=== PATIENT | male | born 1980 | race Caucasian/White ===

== ENCOUNTER 2017-03-05 07:22 | Emergency (ER) | payer MEDICAID, SELFPAY ==
[2017-03-05 07:23] VITALS: BP 144/90; PULSE 69; RESP 18; TEMP 36.6; O2SAT 97; BMI 31.9
--- NOTE | 2017-03-05 07:28 | ED.RN ---
PT VERBALIZES THAT HE HAS BEEN SEEN HERE SEVERAL TIMES FOR HIS CHRONIC VOMITING AND WE DONT DO ANYTHING OTHER THAN STICK AN IV IN AND GIVEN HIM NAUSEA MEDS. EDUCATION ON ER TREATMENT AND CARE AND IMPROTANCE OF FOLLOWUP WITH PCP, OUTPATIENT TESTING VS ER TESTING ETC.
--- NOTE | 2017-03-05 07:40 | ED.VISSUMM ---
- ER Visit Summary Date of Service: 03/05/17 Chief Complaint: Nausea and vomiting ?3 with blood streaks History of Present Illness: The patient is a 36 M who has history of chronic nausea and vomiting for approximately 3 years. He presents this morning because he noted blood streaks in the second emesis. He presently has no pain nor does he complain of nausea. He denies fever, chills night sweats. He denies any ocular, auditory or visual symptoms. He denies epistaxis, rhinorrhea, earache or sore throat. He denies any chest discomfort or palpitations. He denies shortness of breath or difficulty breathing. Presently he complains of no abdominal pain. He states he has had a workup which included an EGD, colonoscopy and CT which were all negative. He is scheduled to see GI at the [facility] and have gastric studies . Physical Examination: Blood pressure is 144/90. Head is atraumatic normocephalic. Pupils are equal round reactive. Extraocular muscles are intact. TMs are pearly white with landmarks noted. Nares patent with no drainage. Posterior pharynx without erythema or exudate. Uvula is midline. There is no dysphonia or dysphasia. Trachea is midline. There is no stridor with auscultation of the neck. Heart is regular without murmur, gallop or rub. S1 and S2 are normal. Lungs are clear to auscultation with good movement of air bilaterally. Abdomen is soft nontender bowel sounds are present normal. There is no hepatosplenomegaly. There is no bruising on dermatologic exam noted. 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 He was treated with Protonix since he is on a PPI. The PPI that he is prescribed is not on formulary. He states he has not been compliant with his medication. Treatment Plan: Follow-up with his PCP and keep appointment with GI at [facility] Disposition: Discharged to home Impression: 1. 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 History of depression This note was generated with [employer] dictation software. It may contain incorrect words, spelling, and punctuation that were not noted in review of the chart prior to signing ED Disposition - Plan for ED Patient: Disposition: Home or Assisted Living Chief Complaint: Nausea/Vomiting Instructions: Meghana-Jordan Tear Referrals: Daniel Marie MD [Primary Care Provider] - As Needed Additional Instructions: 1. It is important to take your medication as instructed daily. 2. Keep appointment with GI center at [facility] for diagnostic testing scheduled for March 09, 2017
--- NOTE | 2017-03-05 07:44 | ED.DCSUM_ITS ---
- ER Visit Summary Date of Service: 03/05/17 Chief Complaint: Nausea and vomiting ?3 with blood streaks History of Present Illness: The patient is a 36 M who has history of chronic nausea and vomiting for approximately 3 years. He presents this morning because he noted blood streaks in the second emesis. He presently has no pain nor does he complain of nausea. He denies fever, chills night sweats. He denies any ocular, auditory or visual symptoms. He denies epistaxis, rhinorrhea , earache or sore throat. He denies any chest discomfort or palpitations. He denies shortness of breath or difficulty breathing. Presently he complains of no abdominal pain. He states he has had a workup which included an EGD, colonoscopy and CT which were all negative. He is scheduled to see GI at the [facility] and have gastric studies . Physical Examination: Blood pressure is 144/90. Head is atraumatic normocephalic. Pupils are equal round reactive. Extraocular muscles are intact. TMs are pearly white with landmarks noted. Nares patent with no drainage. Posterior pharynx without erythema or exudate. Uvula is midline. There is no dysphonia or dysphasia. Trachea is midline. There is no stridor with auscultation of the neck. Heart is regular without murmur, gallop or rub. S1 and S2 are normal. Lungs are clear to auscultation with good movement of air bilaterally. Abdomen is soft nontender bowel sounds are present normal. There is no hepatosplenomegaly. There is no bruising on dermatologic exam noted. 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 He was treated with Protonix since he is on a PPI. The PPI that he is prescribed is not on formulary. He states he has not been compliant with his medication. Treatment Plan: Follow-up with his PCP and keep appointment with GI at [facility] Disposition: Discharged to home Impression: 1. 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 History of depression This note was generated with [employer] dictation software. It may contain incorrect words, spelling, and punctuation that were not noted in review of the chart prior to signing ED Disposition - Plan for ED Patient: Disposition: Home or Assisted Living Chief Complaint: Nausea/Vomiting Instructions: Meghana-Jordan Tear Referrals: Daniel Marie MD [Primary Care Provider] - As Needed Additional Instructions: 1. It is important to take your medication as instructed daily. 2. Keep appointment with GI center at [facility] for diagnostic testing scheduled for March 09, 2017
[2017-03-05] MEDS: Pantoprazole Sodium 40 MG Tablet PO (07:48)
== END 2017-03-05 07:54 | disposition home or self-care (01) ==
PROVIDERS: Emergency Provider Emergency Medicine; Family Provider Family Medicine; PCP Family Medicine
DX: R11.2 Nausea with vomiting, unspecified (principal); R10.9 Unspecified abdominal pain; K22.6 Gastro-esophageal laceration-hemorrhage syndrome; Z72.0 Tobacco use; Z79.899 Other long term (current) drug therapy; Z91.14 Patient's other noncompliance with medication regimen
CPT/HCPCS: 99282

== ENCOUNTER 2017-05-30 06:47 | Emergency (ER) | payer MEDICAID, SELFPAY ==
[2017-05-30 06:48] VITALS: BP 123/83; PULSE 71; RESP 16; TEMP 36.7; O2SAT 96; BMI 31.0
--- NOTE | 2017-05-30 07:09 | ED.VISSUMM ---
- ER Visit Summary Date of Service: 05/30/17 Chief Complaint: [Vomiting and need for medication refill] History of Present Illness: The patient is a 36 M [presents to the emergency department with 2 episodes of vomiting since 3 AM. Patient states that he ran out of his amitriptyline 2 days ago. Patient has had a history of chronic abdominal issues including vomiting for the last 3 years. Patient's had workup for this including EGD. Patient states that he started amitriptyline in March and it has made a significant difference in the symptoms that he used to have. Patient states that currently is vomiting and nausea have resolved. He describes some mild diffuse abdominal discomfort which is typical for his symptomatology after vomiting. Patient denies any fever or recent illness. Patient does not want anything for nausea at this time. Patient denies urinary symptoms. Patient denies diarrhea. Patient denies blood in his stool or vomit.] Physical Examination: [HEENT-PERRLA, EOMI. Cranial nerves II through XII grossly intact. TMs clear. Mucous membranes moist. No adenopathy. Cardiovascular-regular rate and rhythm without murmur or ectopy Lungs-clear to auscultation, chest wall stable without crepitus or subcu emphysema Abdomen-normoactive bowel sounds, soft. Mild diffuse tenderness. There is no rebound, rigidity, or perineal signs. Patient does not localize. Extremities-intact ?4, normal range of motion, normal pulses, atraumatic] Test Results: [None indicated] Emergency Department Course and Treatment: [Patient was just like a prescription option for his amitriptyline and a note stating patient was in the emergency department for his work.] Treatment Plan: [Patient will be given a prescription for amitriptyline and advised to follow-up with his primary care physician within the next 2-3 days.] Disposition: [Discharged to home in stable condition] Impression: [Medication refill Nausea and vomiting-acute on chronic] This note was generated with [employer] dictation software. It may contain incorrect words, spelling, and punctuation that were not noted in review of the chart prior to signing ED Disposition - Plan for ED Patient: Chief Complaint: Nausea/Vomiting Referrals: Daniel Marie MD [Primary Care Provider] -
--- NOTE | 2017-05-30 07:12 | ED.DCSUM_ITS ---
- ER Visit Summary Date of Service: 05/30/17 Chief Complaint: [Vomiting and need for medication refill] History of Present Illness: The patient is a 36 M [presents to the emergency department with 2 episodes of vomiting since 3 AM. Patient states that he ran out of his amitriptyline 2 days ago. Patient has had a history of chronic abdominal issues including vomiting for the last 3 years. Patient's had workup for this including EGD. Patient states that he started amitriptyline in March and it has made a significant difference in the symptoms that he used to have. Patient states that currently is vomiting and nausea have resolved. He describes some mild diffuse abdominal discomfort which is typical for his symptomatology after vomiting. Patient denies any fever or recent illness. Patient does not want anything for nausea at this time. Patient denies urinary symptoms. Patient denies diarrhea. Patient denies blood in his stool or vomit. ] Physical Examination: [HEENT-PERRLA, EOMI. Cranial nerves II through XII grossly intact. TMs clear. Mucous membranes moist. No adenopathy. Cardiovascular-regular rate and rhythm without murmur or ectopy Lungs-clear to auscultation, chest wall stable without crepitus or subcu emphysema Abdomen-normoactive bowel sounds, soft. Mild diffuse tenderness. There is no rebound, rigidity, or perineal signs. Patient does not localize. Extremities-intact ?4, normal range of motion, normal pulses, atraumatic] Test Results: [None indicated] Emergency Department Course and Treatment: [Patient was just like a prescription option for his amitriptyline and a note stating patient was in the emergency department for his work.] Treatment Plan: [Patient will be given a prescription for amitriptyline and advised to follow-up with his primary care physician within the next 2-3 days.] Disposition: [Discharged to home in stable condition] Impression: [Medication refill Nausea and vomiting-acute on chronic] This note was generated with [employer] dictation software. It may contain incorrect words, spelling, and punctuation that were not noted in review of the chart prior to signing ED Disposition - Plan for ED Patient: Chief Complaint: Nausea/Vomiting Referrals: Daniel Marie MD [Primary Care Provider] -
--- NOTE | 2017-05-30 07:13 | ED.DEP ---
ED Disposition - Plan for ED Patient: Chief Complaint: Nausea/Vomiting Instructions: ED Nausea Vomiting Prescriptions: Ondansetron [Zofran Odt] 4 mg PO Q8H PRN PRN #10 tab PRN Reason: Nausea Amitriptyline HCl 10 mg PO QHS #30 tab Referrals: Daniel Marie MD [Primary Care Provider] - 3-5 Days
== END 2017-05-30 07:37 | disposition home or self-care (01) ==
LOC: ED 07:13
PROVIDERS: Emergency Provider Emergency Medicine; Family Provider Family Medicine; PCP Family Medicine
DX: R11.2 Nausea with vomiting, unspecified (principal); Z76.0 Encounter for issue of repeat prescription; Z72.0 Tobacco use
CPT/HCPCS: 99282

== ENCOUNTER 2017-07-30 08:00 | Emergency (ER) | payer MEDICAID, SELFPAY ==
[2017-07-30 08:01] VITALS: BP 121/84; PULSE 60; RESP 18; TEMP 36.6; O2SAT 98; BMI 32.8
--- NOTE | 2017-07-30 08:14 | ED.DCSUM_ITS ---
- ER Visit Summary Date of Service: 07/30/17 Chief Complaint: Nausea, vomiting History of Present Illness: The patient is a 36 M presenting with nausea, vomiting. He states this started around 3 AM. He states he has vomited 3 times in the past 5 hours. He denies blood in his emesis. He has mild abdominal cramping. Denies diarrhea or constipation. Denies urinary complaints. Denies fever chills. He states he has vomited every day for the past 3 years. He is currently being worked up by his primary care physician for these symptoms. He states they have not found a cause. Denies other complaints. Physical Examination: Vitals are stable. Patient is afebrile. Alert no acute distress. HEENT exam is unremarkable. Neck is supple. Lungs are clear and equal bilaterally. Heart is regular rate and rhythm. Abdomen is soft mild epigastric tenderness with no rebound or guarding. Extremities are unremarkable. Skin is warm and dry. Remainder of exam is unremarkable. Emergency Department Course and Treatment: Patient is given IV fluids, Zofran. Basic metabolic panel, lipase are unremarkable. Patient is feeling improved. He states he has nausea medicine at home. Advised to follow-up with primary care physician. Advised return to ED if worsening complaints. Disposition: Discharge home Impression: Nausea, vomiting This note was generated with [employer] dictation software. It may contain incorrect words, spelling, and punctuation that were not noted in review of the chart prior to signing ED Disposition - Plan for ED Patient: Chief Complaint: Nausea/Vomiting Referrals: Daniel Marie MD [Primary Care Provider] -
[2017-07-30] MEDS: 0.9% Normal Saline 1,000 ML 999 ML IV (08:24)
[2017-07-30] MEDS: Ondansetron 4 MG/2 ML Vial IV (08:24)
[2017-07-30 08:47] LABS: Anion Gap 6 (5-15); BUN 10 mg/dL (7-18); BUN/Creat Ratio 8.7 RATIO (10-20); Calcium,Total 8.7 mg/dL (8.5-10.1); Chloride 109 mmol/L (98-107); Creatinine, Serum 1.15 mg/dL (0.70-1.30); EST Glomerular Filtration Rate 77 mL/min (>60); Est Glom Filt Rate - Afr Amer 93 mL/min (>60); Estimated Creatinine Clearance 84.62 ml/min; Glucose 102 mg/dL (74-106); Lipase 79 U/L (73-393); Sodium Level 141 mmol/L (136-145)
--- NOTE | 2017-07-30 08:59 | ED.DEP ---
ED Disposition - Plan for ED Patient: Chief Complaint: Nausea/Vomiting Instructions: ED Nausea Vomiting Referrals: Daniel Marie MD [Primary Care Provider] -
[2017-07-30 09:13] VITALS: BP 120/78; PULSE 98; RESP 14; O2SAT 99
== END 2017-07-30 09:14 | disposition home or self-care (01) ==
PROVIDERS: Emergency Provider Emergency Medicine; Family Provider Family Medicine; PCP Family Medicine
DX: R11.2 Nausea with vomiting, unspecified (principal); R10.9 Unspecified abdominal pain; Z72.0 Tobacco use
CPT/HCPCS: 80048; 83690; 96361; 96374; 99283; J7030; A4216; J2405

== ENCOUNTER 2018-04-22 05:50 | Emergency (ER) | payer MEDICAID, SELFPAY ==
[2018-04-22 05:50] VITALS: BP 148/87; PULSE 88; RESP 16; TEMP 36.9; O2SAT 98; BMI 32.8
--- NOTE | 2018-04-22 06:14 | ED.VISSUMM ---
- ER Visit Summary Date of Service: 04/22/18 Chief Complaint: Nausea and vomiting History of Present Illness: The patient is a 37 M no significant past medical history. Patient states for the last 3-1/2 years he has nausea vomiting almost daily. States this morning around 330 he started vomiting about 4 times. Denies any hematemesis. No fever. No diarrhea. No dysuria. States he did have upper abdominal cramping. He is never been given a diagnosis for why he vomits on a daily basis. He has had upper endoscopy which she states was negative. Physical Examination: Young male no acute distress. Vital signs are stable. He is afebrile. He does not look septic or toxic. He does not look significantly dehydrated. HEENT exam unremarkable. Neck nontender no lymphadenopathy. Lungs clear to auscultation bilaterally. Heart regular rate and rhythm no murmur rate about 9. Abdomen soft. Nondistended normal bowel sounds no peritoneal signs. Minimal epigastric tenderness. No hernias or masses. No signs of obstruction. Right lower quadrant right upper quadrant unremarkable. No East sign no McBurney's point tenderness. Patient is moving all 4 extremities. Neurovascular intact. No edema. Back nontender. Neurologically is awake alert with no focal motor deficits. Test Results: CBC normal normal white count hemoglobin. Chemistries normal normal creatinine and gap. Liver enzymes normal. Lipase normal. Emergency Department Course and Treatment: Patient treated with a liter normal saline. IV Zofran. Screening labs to be obtained. On repeat exam at 06:44 AM patient is doing well. Abdomen is benign. His nausea is resolving and is had no further vomiting. He is currently being discharged to home. Treatment Plan: Follow-up with his primary care physician. Fluids and rest. Zofran as needed for nausea. Disposition: Discharge Impression: Acute on chronic nausea vomiting of uncertain etiology This note was generated with [employer] dictation software. It may contain incorrect words, spelling, and punctuation that were not noted in review of the chart prior to signing ED Disposition - Plan for ED Patient: Disposition: Home or Assisted Living Instructions: ED Nausea Vomiting Prescriptions: Ondansetron [Zofran Odt] 4 mg PO Q8H PRN PRN #10 tab PRN Reason: Nausea Referrals: Daniel Marie MD [Primary Care Provider] - 1 Week if not improving Additional Instructions: Friend for nausea as needed. Plenty of fluids and rest. Follow-up with your doctor.
--- NOTE | 2018-04-22 06:16 | ED.DEP ---
ED Disposition - Plan for ED Patient: Disposition: Home or Assisted Living Instructions: ED Nausea Vomiting Prescriptions: Ondansetron [Zofran Odt] 4 mg PO Q8H PRN PRN #10 tab PRN Reason: Nausea Referrals: Daniel Marie MD [Primary Care Provider] - 1 Week if not improving Additional Instructions: Friend for nausea as needed. Plenty of fluids and rest. Follow-up with your doctor.
[2018-04-22] MEDS: Ondansetron 4 MG/2 ML Vial IV (06:29)
[2018-04-22] MEDS: 0.9% Normal Saline 1,000 ML 1000 ML IV (06:29)
[2018-04-22 06:31] LABS: Absolute Lymphocyte Count 1.86 X10^3/ul (0.83-4.51); Absolute Neutrophil Count 5.3 X10^3/uL (2.0-7.7); Basophil# 0.07 X10^3/uL; Basophil% 0.8 % (0-1); Eosinophil# 0.57 X10^3/uL; Eosinophils% 6.6 % (0-5); Hematocrit 50.2 % (40-54); Lymphocyte # 1.86 X10^3/ul (4.0); Lymphocyte % 21.5 % (19-41); Mean Corp Hgb Conc 33.9 g/gl (32-36); Mean Corpuscular Hgb 29.6 pg (27.0-32.0); Mean Corpuscular Volume 87.3 fL (80-94); Mean Platelet Vol. 10.2 fl (6.2-12.0); Monocyte# 0.88 X10^3/uL; Monocyte% 10.1 % (0-10); Neutrophil # 5.26 X10^3/uL (2.7-7.7); Neutrophil % 60.7 % (47-70); Platelet Count 276 K/mm3 (150-450); RBC Distribution Width CV 13.4 % (11.6-14.6); Red Blood Count 5.75 M/mm3 (4.6-6.2); White Blood Count 8.7 K/mm3 (4.4-11.0)
[2018-04-22 06:32] LABS: POSITIVE COUNT NO; POSITIVE DIFFERENTIAL NO; POSITIVE MORPHOLOGY NO
[2018-04-22 06:42] LABS: BUN 15 mg/dL (7-18); Creatinine, Serum 1.18 mg/dL (0.70-1.30); Estimated Creatinine Clearance 81.69 ml/min; Glucose 119 mg/dL (74-106)
[2018-04-22 06:43] LABS: AST(SGOT) 27 U/L (15-37); Alanine Aminotransfer ALT/SGPT 36 U/L (16-61); Albumin, Serum 3.9 g/dL (3.2-5.0); Alkaline Phosphatase 83 U/L (45-117); Anion Gap 5 (5-15); BUN/Creat Ratio 12.7 RATIO (10-20); Bilirubin, Direct 0.06 mg/dL (0.00-0.30); Calcium,Total 8.7 mg/dL (8.5-10.1); Chloride 109 mmol/L (98-107); EST Glomerular Filtration Rate 75 mL/min (>60); Est Glom Filt Rate - Afr Amer 90 mL/min (>60); Globulin 3.8 g/dL (2.2-4.2); Lipase 78 U/L (73-393); Potassium 4.2 mmol/L (3.5-5.1); Protein, Total 7.7 g/dL (6.4-8.2); Sodium Level 141 mmol/L (136-145)
[2018-04-22 07:31] VITALS: PULSE 84; RESP 17; O2SAT 99
== END 2018-04-22 07:32 | disposition home or self-care (01) ==
PROVIDERS: Emergency Provider Emergency Medicine; Family Provider Family Medicine; PCP Family Medicine
DX: R11.2 Nausea with vomiting, unspecified (principal); Z72.0 Tobacco use
CPT/HCPCS: 80048; 80076; 83690; 85025; 96361; 96374; 99284; J7030; A4216; J2405

== ENCOUNTER 2018-05-21 01:47 | Emergency (ER) | payer MEDICAID, SELFPAY ==
[2018-05-21 01:48] VITALS: BP 144/85; PULSE 68; RESP 18; TEMP 36.9; O2SAT 98; BMI 31.2
--- NOTE | 2018-05-21 01:59 | ED.VIS.GEN ---
History of Present Illness Chief Complaint: Upper Extremity Injury Detail of Chief Complaint: Left shoulder pain Informant: Patient Onset: Days - 2 days ago Context: Sudden Onset Timing: Continuous Quality: Pain which he localizes to the proximal anterior left shoulder Location: Proximal anterior left shoulder Current Severity: Mild Maximum Severity: Severe Worsened by: Any type of movement and palpation Relieved by: Nothing Associated Symptoms: No associated symptoms Narrative: Patient is a 37-year-old [id number] male presents with left shoulder pain after lifting a couch by himself 2 days ago. He states he has prior history of rotator cuff injury. He denies paresthesia, anesthesia motors. There is no history of trauma. He has no cardiac respiratory symptoms. He states he has done nothing for the pain the past 2 days. Prior similar symptoms: Yes - Remote past Recent Illness/Hospitalization: No - Past Medical History (1) History of rotator cuff tear Status: Chronic Past Medical History - Allergies and Home Meds Allergies/Adverse Reactions: Allergies No Known Allergies Allergy (Verified 05/21/18 01:47) Primary Care Physician: Daniel Marie MD [Primary Care Provider] - Past Medical History: None Surgical History: noncontributory Lives: Spouse/ Significant Other Smoking Status: Current every day smoker Review of Systems General: Denies: Chills, Fever, Malaise, Sweats Cardiovascular: Denies: Chest pain, Palpitations Respiratory: Denies: Dyspnea, Cough, Dyspnea on exertion Gastrointestinal: Denies: Nausea, Vomiting Musculoskeletal: Reports: Extremity Pain. Denies: Myalgias, Arthralgias, Neck pain, Back pain Skin: Denies: Rash, Wounds Neurological: Denies: Weakness, Parasthesia, Numbness Physical Exam Vital Signs/Narrative: Vital Signs Temp Pulse Resp BP Pulse Ox 05/21/18 01:48 98.4 F 68 18 144/85 H 98 Inital Vital Signs reviewed: Yes General: Well nourished, Well developed, No Acute Distress Head: Normocephalic, Atraumatic Eyes: Perrl, EOMI. Negative for: Pale conjunctiva, Scleral icterus Neck: Supple, Nontender Cardiovascular: Regular rate, Regular rhythm, No murmurs, Normal S1, Normal S2 Respiratory: No distress, CTA bilaterally Extremities: No edema, - - Patient reports discomfort proximal anterior left shoulder with internal and external rotation. He resisted abduction. He had a negative drop test. There is no evidence of trauma. There is no pain palpation over the clavicle or AC joint. There is no pain palpation posteriorly. There is no pain to palpation anteriorly either.. Negative for: Nontender Skin: Normal color, No rash, No Trauma Neurological: Alert, Oriented x3, Cranial nerves II-XII grossly intact, Normal Strength, Normal Sensation, Normal DTR - Biceps, brachial radialis and triceps reflex are 1+ and symmetric., - - Axillary, median, radial and ulnar function intact. Psychological: Normal affect Diagnostic/Tx/Re-eval - Medical Decision Making Since there are no neurovascular findings, negative drop test and no history of trauma patient was informed radiologic imaging is not indicated. He is response was so you are taking my word for and doing nothing . Patient was informed history allows a position to obtain the correct information 85-90% of the time. He was told since there are no objective findings on exam and no history of trauma x-rays are not indicated. He does not meet criteria for an MRI. He was told proper initial treatment is anti-inflammatory. He was referred to orthopedist technology consultant. He does not recall who we saw for prior rotator cuff injury. ED Disposition - Plan for ED Patient: Disposition: Home or Assisted Living Diagnosis: Strain of left shoulder, History of rotator cuff tear Prescriptions: Naproxen [Naprosyn] 500 mg PO BID #14 tab Referrals: Daniel Marie MD [Primary Care Provider] - 3-5 Days if not improving
--- NOTE | 2018-05-21 02:16 | ED.DCSUM_ITS ---
- ER Visit Summary Date of Service: 05/21/18 Chief Complaint: [] History of Present Illness: The patient is a 37 M [] Physical Examination: [] Test Results: [] Emergency Department Course and Treatment: [] Treatment Plan: [] Disposition: [] Impression: [] This note was generated with [employer] dictation software. It may contain incorrect words, spelling, and punctuation that were not noted in review of the chart prior to signing ED Disposition - Plan for ED Patient: Disposition: Home or Assisted Living Diagnosis: Strain of left shoulder, History of rotator cuff tear Instructions: ED Sprain Shoulder Prescriptions: Naproxen [Naprosyn] 500 mg PO BID #14 tab Referrals: Daniel Marie MD [Primary Care Provider] - 3-5 Days if not improving
[2018-05-21] MEDS: Naproxen 250 MG Tablet 500 MG PO (02:23)
== END 2018-05-21 02:29 | disposition home or self-care (01) ==
PROVIDERS: Emergency Provider Emergency Medicine; Family Provider Family Medicine; PCP Family Medicine
DX: S46.912A Strain of unspecified muscle, fascia and tendon at shoulder and upper arm level, left arm, initial encounter (principal); X50.0XXA Overexertion from strenuous movement or load, initial encounter; Y93.89 Activity, other specified; Y92.9 Unspecified place or not applicable; Z87.828 Personal history of other (healed) physical injury and trauma; F17.200 Nicotine dependence, unspecified, uncomplicated
CPT/HCPCS: 99283

== ENCOUNTER 2018-09-10 07:54 | Emergency (ER) | payer MEDICAID, SELFPAY ==
[2018-09-10 07:54] VITALS: BP 150/95; PULSE 68; RESP 15; TEMP 36.6; O2SAT 96; BMI 30.4
--- NOTE | 2018-09-10 08:10 | ED.DCSUM_ITS ---
History of Present Illness Chief Complaint: Nausea/Vomiting Informant: Patient - Abdominal Pain/Flank Pain Onset: - - 5 years, every morning - Nausea/Vomiting/Emesis GI Symptom: Nausea, Vomiting - Diarrhea/Melena/Hematochezia GI Symptom: Negative for: Diarrhea, Melena, Hematochezia Associated Symptoms: Negative for: Dysuria, Frequency, Hematuria, Urgency Narrative: Patient has a chronic condition, he is vomiting basically every morning despite taking Zofran which helps to minimize it. He gets periumbilical pain when he vomits, but otherwise he really does not have any pain. After the vomiting in the mornings, usually goes throughout the day without any vomiting or pain, drinks Gatorade and is fine. He states this morning there was relatively small amount of blood in it, he states that has happened many times before but he was at work when this happened this morning and his boss made him come to the ER to have an evaluation. He states he does not feel lightheaded or near syncopal, he has had no melena, she has some soreness in his throat. None of the symptoms are new, he has had them all before and chronically for over 5 years or more. He has a GI appointment in 1 week from now in [place]. He has had imaging and scopes before that have not showed the diagnosis. Past Medical History - Allergies and Home Meds Allergies/Adverse Reactions: Allergies No Known Allergies Allergy (Verified 05/21/18 01:47) Primary Care Physician: Daniel Marie MD [Primary Care Provider] - Surgical History: noncontributory Smoking Status: Current every day smoker Drugs: None Review of Systems General: Denies: Malaise Gastrointestinal: Reports: Abdominal pain, Nausea, Vomiting. Denies: Diarrhea, Constipation, Melena, Hematochezia Neurological: Denies: Headache, Weakness, Numbness Physical Exam Vital Signs/Narrative: Vital Signs Temp Pulse Resp BP Pulse Ox 09/10/18 07:54 97.9 F 68 15 150/95 H 96 Inital Vital Signs reviewed: Yes General: Well nourished, Well developed, No Acute Distress Head: Normocephalic, Atraumatic Eyes: Perrl, EOMI ENT: Moist mucous membranes, No rhinorrhea, - - Posterior oropharynx clear Cardiovascular: Regular rate, Regular rhythm, No murmurs. Negative for: Tachycardia Abdomen: Soft, Nontender, Nondistended, Normal bowel sounds Skin: Normal color, No rash Neurological: Alert, Oriented x3, Cranial nerves II-XII grossly intact, Normal Strength, Normal Sensation, Normal Gait Psychological: Normal affect, Normal Mood Diagnostic/Tx/Re-eval - Medical Decision Making Patient is well-appearing, his vital signs are normal. He prefers not to have IV fluids or medications right now, he is feeling fine right now. I do not think emergent work-up is necessary given the circumstances and chronic nature of these symptoms. Likely has a small Meghana-Jordan tear, he does lots of dry heaving every morning. He has been told that before. Encouraged to return for significant bleeding or signs of dehydration which he does not have right now. ED Disposition - Plan for ED Patient: Disposition: Home or Assisted Living Diagnosis: Chronic vomiting, Meghana-Jordan tear Instructions: VOMITING (8y-Adult) Referrals: Daniel Marie MD [Primary Care Provider] - GI, doctor [Other] (as scheduled)
== END 2018-09-10 08:19 | disposition home or self-care (01) ==
LOC: ED 08:16
PROVIDERS: Emergency Provider Emergency Medicine; Family Provider Family Medicine; PCP Family Medicine
DX: R11.2 Nausea with vomiting, unspecified (principal); K22.6 Gastro-esophageal laceration-hemorrhage syndrome; R10.33 Periumbilical pain; F17.200 Nicotine dependence, unspecified, uncomplicated
CPT/HCPCS: 99282

== ENCOUNTER 2019-02-07 06:52 | Emergency (ER) | payer MEDICAID, SELFPAY ==
[2019-02-07 06:55] VITALS: BP 132/81; PULSE 82; RESP 16; TEMP 37; O2SAT 97; BMI 31.1
--- NOTE | 2019-02-07 07:09 | ED.VIS.GI ---
History of Present Illness Chief Complaint: Nausea/Vomiting/Diarrhea Informant: Patient - Abdominal Pain/Flank Pain Onset: - - 5 years Context: Onset with activity - every AM Timing: Intermittent, Lasts - an hr or so Quality: Cramping Location: - - lower abd Current Severity: Gone Maximum Severity: Moderate Worsened by: Nothing Relieved by: - - after vomiting - Nausea/Vomiting/Emesis GI Symptom: Nausea, Vomiting Quality: Blood streaks - Diarrhea/Melena/Hematochezia GI Symptom: Negative for: Diarrhea, Melena, Hematochezia Associated Symptoms: Negative for: Dysuria, Frequency, Hematuria, Urgency Narrative: Patient has chronic vomiting, every morning he states. He states he usually gets lower abdominal pain in the mornings, after vomiting several times a gradually goes away. He is in that phase now, he states the nausea is better, his abdominal discomfort is going away, and nothing is different than his usual chronic symptoms this morning, but since he vomited at work and 1 of the managers saw him, and saw that there was some blood in it, they made me come here. He states he does not want any testing. He saw gastroenterology after his last ER visit, during which she was seen by myself for the same symptoms, they told him they suspected his marijuana use was involved, so he discontinued it but the vomiting continued so now he states he continues to smoke marijuana because it relaxes him and makes him feel better. Past Medical History - Allergies and Home Meds Allergies/Adverse Reactions: Allergies No Known Allergies Allergy (Verified 02/07/19 06:59) Primary Care Physician: Daniel Marie MD [Primary Care Provider] - Surgical History: noncontributory - no abd surgeries Lives: Alone Smoking Status: Current every day smoker Drugs: Marijuana Review of Systems General: Denies: Chills, Fever, Sweats Eyes: Denies: Visual changes - bilaterally, Diplopia ENT: Denies: Rhinorrhea, Sore throat Cardiovascular: Denies: Chest pain, Palpitations Respiratory: Denies: Dyspnea, Cough, Dyspnea on exertion Gastrointestinal: Reports: Abdominal pain, Nausea, Vomiting. Denies: Diarrhea, Melena, Hematochezia Genitourinary: Denies: Dysuria, Hematuria, Frequency Musculoskeletal: Denies: Back pain, Extremity Pain Skin: Denies: Rash, Wounds Neurological: Denies: Headache, Weakness, Numbness Physical Exam Vital Signs/Narrative: Vital Signs Temp Pulse Resp BP Pulse Ox 02/07/19 06:55 98.6 F 82 16 132/81 H 97 Inital Vital Signs reviewed: Yes General: Well nourished, Well developed, No Acute Distress Head: Normocephalic, Atraumatic ENT: Moist mucous membranes, No rhinorrhea Neck: Supple, Nontender Cardiovascular: Regular rate, Regular rhythm, No murmurs. Negative for: Tachycardia Respiratory: No distress, CTA bilaterally, Chest nontender Abdomen: Soft, Nontender, Nondistended, Normal bowel sounds Skin: Normal color, No rash, No Trauma Neurological: Alert, Oriented x3, Cranial nerves II-XII grossly intact, Normal Strength, Normal Sensation Psychological: Normal affect, Normal Mood Diagnostic/Tx/Re-eval - Medical Decision Making Patient does not want any treatment. He was offered IV fluids, nausea medication, testing although with the disclaimer that we may not have the tools to diagnose his problem here in the emergency department. He states he is not here for testing, only for a note saying he came to the ER for evaluation for his work. I do not think patient has any medical emergency at this time. He has his reflux medication but states he is noncompliant with it, since he took it early on when he saw doctors and it did not do anything. He states he has it at home to take. I recommend that he take it consistently for the next 2 weeks given the bleeding and possibility of a Meghana-Jordan tear. ED Disposition - Plan for ED Patient: Disposition: Home or Assisted Living Diagnosis: Chronic vomiting, Meghana-Jordan tear Instructions: Meghana-Jordan Tear, VOMITING (8y-Adult) Referrals: Daniel Marie MD [Primary Care Provider] - 1-2 Weeks (and/or your GI doctor) Additional Instructions: Since you have had a little bit of blood in your vomit, make sure and take your reflux medication daily, as prescribed, for at least 2 weeks.
[2019-02-07 07:23] VITALS: BP 140/99; PULSE 76; RESP 16; O2SAT 98
== END 2019-02-07 07:24 | disposition home or self-care (01) ==
LOC: ED 07:18
PROVIDERS: Emergency Provider Emergency Medicine; Family Provider Family Medicine; PCP Family Medicine
DX: R11.2 Nausea with vomiting, unspecified (principal); K22.6 Gastro-esophageal laceration-hemorrhage syndrome; F12.90 Cannabis use, unspecified, uncomplicated; F17.200 Nicotine dependence, unspecified, uncomplicated; Z91.14 Patient's other noncompliance with medication regimen
CPT/HCPCS: 99282

== ENCOUNTER 2019-06-06 03:21 | Emergency (ER) | payer MEDICAID, SELFPAY ==
[2019-06-06 03:22] VITALS: BP 131/91; PULSE 67; RESP 18; TEMP 36.8; O2SAT 98; BMI 33.9
--- NOTE | 2019-06-06 03:44 | RAD_ITS ---
HISTORY: C/O HEARTBURN AND SOB EXAMINATION/TECHNIQUE: XR Chest 1 View: Portable COMPARISON: 10/17/2016 FINDINGS: Cardiac telemetry leads in place. No significant change. Normal heart size. No focal infiltrate. No vascular congestion or pleural effusion. No pneumothorax. The bony thorax appears intact. RAD/Chest 1 View (Portable) IMPRESSION: No acute cardiopulmonary disease. No significant interval change. at 0437 Reported and signed by: Mac Mclain MD Electronically Signed: Mac Mclain, at 4:36 EDT Tel , Service support ,
--- NOTE | 2019-06-06 03:44 | EKG12_ITS ---
Test Reason : CHEST BURNING Blood Pressure : / mmHG Vent. Rate : 070 BPM Atrial Rate : 070 BPM P-R Int : 136 ms QRS Dur : 086 ms QT Int : 396 ms P-R-T Axes : -01 026 025 degrees QTc Int : 427 ms Normal sinus rhythm Normal ECG Confirmed by TERRANCE ROBERTS, MORGAN ([id number]), senior technical editor TERI DENT ([id number]) on 06/09/2019 2:26:35 PM Referred By: ANDREAS Confirmed By:MORGAN CARLOS MD
[2019-06-06 03:51] LABS: Absolute Lymphocyte Count 3.42 X10^3/uL (0.83-4.51); Absolute Neutrophil Count 4.5 X10^3/uL (2.0-7.7); Basophil# 0.07 X10^3/uL; Basophil% 0.7 % (0-1); Eosinophil# 0.38 X10^3/uL; Hematocrit 44.9 % (40-54); Hemoglobin 15.3 g/dL (13.0-16.5); Lymphocyte # 3.42 X10^3/ul (4.0); Lymphocyte % 36.2 % (19-41); Mean Corp Hgb Conc 34.1 g/dL (32-36); Mean Platelet Vol. 10.2 fl (6.2-12.0); Monocyte# 1.04 X10^3/uL; NRBC Flagged by Analyzer 0 % (0-5); Neutrophil # 4.51 X10^3/uL (2.7-7.7); Neutrophil % 47.8 % (47-70); Platelet Count 269 K/mm3 (150-450); RBC Distribution Width CV 13.1 % (11.6-14.6); RBC Distribution Width SD 42.4 fl (35.1-43.9); White Blood Count 9.5 K/mm3 (4.4-11.0)
[2019-06-06] MEDS: Aspirin 81 MG TAB.CHEW 324 MG PO (03:53)
[2019-06-06] MEDS: Mag Hydrox/Al Hydrox/Simeth 30 ML UDC PO (03:54)
[2019-06-06] MEDS: 0.9% Normal Saline 1,000 ML 150 ML IV (03:59)
[2019-06-06 04:16] LABS: Anion Gap 6 (5-15); BUN 22 mg/dL (7-18); BUN/Creat Ratio 19.3 RATIO (10-20); Calcium,Total 8.7 mg/dL (8.5-10.1); Chloride 109 mmol/L (98-107); Creatinine, Serum 1.14 mg/dL (0.70-1.30); EST Glomerular Filtration Rate 77 mL/min (>60); Est Glom Filt Rate - Afr Amer 93 mL/min (>60); Estimated Creatinine Clearance 83.75 ml/min; Glucose 117 mg/dL (74-106); Potassium 4.4 mmol/L (3.5-5.1); Sodium Level 140 mmol/L (136-145)
--- NOTE | 2019-06-06 05:03 | ED.VISSUMM ---
- ER Visit Summary Date of Service: 06/06/19 Chief Complaint: [Shortness of breath and burning chest discomfort] History of Present Illness: The patient is a 38 M [presents to the emergency department with symptoms that started an hour ago. Patient states that he was awoken from sleep with a burning in his chest that kind of went into his throat. Patient started coughing and felt somewhat short of breath. He is never had symptoms quite like this before. He was drinking alcohol last night and did eat some fried chicken. No family history of heart disease although he states he had a heart attack at the age of 21 while he was in detention related to stress. He has no cardiac stents and he had no intervention. Patient otherwise has no medical history. Denies any recent fever or cough or body aches. Patient is a smoker. He drinks alcohol occasionally. He smokes marijuana occasionally.] Physical Examination: [HEENT-PERRLA, EOMI. Cranial nerves II through XII grossly intact. TMs clear. Mucous membranes moist. No adenopathy. Cardiovascular-regular rate and rhythm without murmur or ectopy Lungs-clear to auscultation, chest wall stable without crepitus or subcu emphysema Abdomen-normoactive bowel sounds, soft, nontender, no rebound or rigidity, no peritoneal signs. Extremities-intact ?4, normal range of motion, normal pulses, atraumatic] Test Results: [EKG obtained on arrival shows sinus rhythm with a ventricular rate of 70 bpm with no acute segment changes. CBC with differential was normal. Chemistries normal. Troponin less than 0.015. Chest x-ray showed nothing acute.] Emergency Department Course and Treatment: [Patient was given a GI cocktail and aspirin on arrival. His symptoms resolved while in the department.] Treatment Plan: [At this point I suspect likely GERD as the etiology of his symptoms. Patient will be started on Prevacid. Patient advised to limit alcohol and acidic foods.] Disposition: [Discharged home in stable condition. Patient advised to follow-up with his primary care physician within next 3 to 5 days.] Impression: [Chest pain-GERD] This note was generated with [employer] dictation software. It may contain incorrect words, spelling, and punctuation that were not noted in review of the chart prior to signing ED Disposition - Plan for ED Patient: Referrals: Daniel Marie MD [Primary Care Provider] -
--- NOTE | 2019-06-06 05:05 | ED.DEP ---
ED Disposition - Plan for ED Patient: Instructions: ED Chest Pain Atypical Unkn Cause, Gastroesophageal Reflux Disease (GERD) Prescriptions: Lansoprazole [Prevacid] 30 mg PO DAILY #30 cap Prescription Printed Referrals: Daniel Marie MD [Primary Care Provider] - 5-7 Days
[2019-06-06 05:20] VITALS: BP 127/62; PULSE 67; RESP 18; O2SAT 96
== END 2019-06-06 05:22 | disposition home or self-care (01) ==
LOC: ED 04:23
PROVIDERS: Emergency Provider Emergency Medicine; PCP Family Medicine
DX: R07.89 Other chest pain (principal); K21.9 Gastro-esophageal reflux disease without esophagitis; I25.2 Old myocardial infarction; F12.90 Cannabis use, unspecified, uncomplicated; F17.200 Nicotine dependence, unspecified, uncomplicated
CPT/HCPCS: 71045; 80048; 84484; 85025; 93005; 96360; 99283; J7030; A4216

== ENCOUNTER 2020-04-26 08:52 | Emergency (ER) | payer MEDICAID, SELFPAY ==
[2020-04-26 08:53] VITALS: BP 156/99; PULSE 83; RESP 16; TEMP 36.2; O2SAT 97; BMI 33.4
--- NOTE | 2020-04-26 09:10 | ED.DCSUM_ITS ---
- ER Visit Summary Date of Service: 04/26/20 Chief Complaint: Abdominal pain History of Present Illness: The patient is a [address] Marie. He reports that he has upper abdominal pain began 6 days ago. He describes it as a hunger pain. Is 7 of 10 at worst and 5-10 currently. Is worsened by vo miting and relieved by nothing. Reports has been vomiting 2-3 times per day. He denies any blood in his emesis. However, he reports that he is been vomiting daily for 5 to 6 years. He also reports that he has had 1 episode of diarrhea today and 2 yesterday. He denies any blood in his stools or black tarry stools. No dysuria or frequency. Patient denies sick contacts. Has not been camping out of the country. No possible bad food exposure. He does drink well water, but others do at home as well and they are not ill. No recent antibiotic use. Patient reports that he has had endoscopy in [place]. He is never had a colonoscopy. He does admit to symptoms that are consistent with reflux. Physical Examination: Vitals: Stable. Afebrile. General: Well-nourished and well-developed. Head: Normocephalic atraumatic. Neck: Supple, no lymphadenopathy. No JVD. Nontender. Cardiovascular: Regular rate and rhythm. No murmurs. Respiratory: No respiratory distress. Clear to auscultation bilaterally. Abdominal: Soft, mild epigastric tenderness to palpation, nondistended, normal bowel sounds. No guarding, rebound, or peritoneal signs. Back: Nontender. Extremities: Nontender, no edema. Skin: Normal color, no rash. Neurologic: Alert and oriented ?3. Cranial nerves II through XII are intact. Normal strength and sensation. Psych: Normal affect. Test Results: CBC shows a hemoglobin of 16.6. Chem-7 shows a chloride of 108 and glucose 122. LFTs show an ALT of 64. Lipase is normal. Emergency Department Course and Treatment: Patient had an IV placed. He was given Toradol and Zofran IV. He was given a GI cocktail p.o. He is resting more comfortably. Treatment Plan: Patient will be discharged with Zofran and Prilosec. Instructed to follow-up his primary care physician in 3 to 5 days if not improving. Return to the emergency department for any worsening symptoms. Disposition: To home in improved and stable condition. Impression: 1. Vomiting/diarrhea. This note was generated with [employer] dictation software. It may contain incorrect words, spelling, and punctuation that were not noted in review of the chart prior to signing ED Disposition - Plan for ED Patient: Instructions: ED Vomiting (Adult) Prescriptions: Omeprazole [Prilosec] 20 mg PO DAILY #30 capsule Ondansetron [Zofran Odt] 4 mg PO Q8H PRN PRN #10 tablet PRN Reason: Nausea Referrals: Daniel Marie MD [Primary Care Provider] - 3-5 Days
[2020-04-26 09:33] LABS: Absolute Lymphocyte Count 1.99 X10^3/uL (0.83-4.51); Absolute Neutrophil Count 5.5 X10^3/uL (2.0-7.7); Basophil# 0.09 X10^3/uL; Basophil% 1.1 % (0-1); Eosinophil# 0.17 X10^3/uL; Hematocrit 48.8 % (40-54); Hemoglobin 16.6 g/dL (13.0-16.5); Lymphocyte # 1.99 X10^3/ul (4.0); Mean Corpuscular Hgb 30.3 pg (27.0-32.0); Mean Corpuscular Volume 89.1 fL (80-94); Mean Platelet Vol. 10.2 fl (6.2-12.0); Monocyte# 0.53 X10^3/uL; Monocyte% 6.4 % (0-10); NRBC Flagged by Analyzer 0 % (0-5); Neutrophil % 66.3 % (47-70); Platelet Count 312 K/mm3 (150-450); RBC Distribution Width CV 13.1 % (11.6-14.6); RBC Distribution Width SD 42.7 fl (35.1-43.9); Red Blood Count 5.48 M/mm3 (4.6-6.2); White Blood Count 8.3 K/mm3 (4.4-11.0)
[2020-04-26] MEDS: Ondansetron 4 MG/2 ML Vial IV (09:33)
[2020-04-26] MEDS: Ketorolac 15 MG/ML Vial IV (09:34)
[2020-04-26] MEDS: Mag Hydrox/Al Hydrox/Simeth 30 ML UDC PO (09:34)
[2020-04-26] MEDS: 0.9% Normal Saline 1,000 ML 1000 ML IV (09:36)
[2020-04-26 09:45] LABS: ALB/GLOB Ratio 1.1 RATIO (0.9-2.4); AST(SGOT) 32 U/L (15-37); Alanine Aminotransfer ALT/SGPT 64 U/L (16-61); Albumin, Serum 4.1 g/dL (3.2-5.0); Alkaline Phosphatase 80 U/L (45-117); Anion Gap 6 (5-15); BUN 15 mg/dL (7-18); BUN/Creat Ratio 13.6 RATIO (10-20); Calcium,Total 9.6 mg/dL (8.5-10.1); Chloride 108 mmol/L (98-107); EST Glomerular Filtration Rate 80 mL/min (>60); Est Glom Filt Rate - Afr Amer 97 mL/min (>60); Estimated Creatinine Clearance 88.95 ml/min; Globulin 3.8 g/dL (2.2-4.2); Glucose 122 mg/dL (74-106); Lipase 69 U/L (73-393); Potassium 4.1 mmol/L (3.5-5.1); Protein, Total 7.9 g/dL (6.4-8.2); Sodium Level 142 mmol/L (136-145)
[2020-04-26 10:13] VITALS: BP 123/79; PULSE 76; RESP 16; O2SAT 98
== END 2020-04-26 10:14 | disposition home or self-care (01) ==
LOC: ED 10:00
PROVIDERS: Emergency Provider Emergency Medicine; PCP Family Medicine
DX: R11.10 Vomiting, unspecified (principal); R19.7 Diarrhea, unspecified; R10.13 Epigastric pain; Z72.0 Tobacco use
CPT/HCPCS: 80053; 83690; 85025; 96374; 96375; 99284; J2405

== ENCOUNTER 2020-07-30 06:41 | Emergency (ER) | payer MEDICAID, SELFPAY ==
[2020-07-30 06:42] VITALS: BP 129/90; PULSE 67; RESP 18; TEMP 36.9; O2SAT 97; BMI 31.7
[2020-07-30 06:44] VITALS: BP 129/90; PULSE 67; RESP 18; TEMP 36.9; O2SAT 97
[2020-07-30] MEDS: Mag Hydrox/Al Hydrox/Simeth 30 ML UDC PO (07:09)
[2020-07-30] MEDS: Ondansetron 4 MG/2 ML Vial IV (07:09)
--- NOTE | 2020-07-30 07:16 | EX.ED.DYSGE1 ---
HPI History of Present Illness Chief Complaint: Nausea/Vomiting Informant: patient Narrative Narrative: 39-year-old male presents with nausea and vomiting. He states that he has vomited every morning for the past 6 years. He has had an endoscopy and swallow study. He states that these were normal. He is supposed to be taking a reflux medication which he has not been compliant with. At one point it was felt that it could be related to cannabis use. He tells me that this morning he was unable to get his nausea vomiting under control and was vomiting at work. Patient denies any diarrhea. He notes normal bowel movement this morning. No fevers. [facility] Medical History (Updated 07/30/20 @ 07:[address] Getachew Mclaughlin DO) Chronic vomiting History of rotator cuff tear Home Medications ondansetron 4 mg PO Q6H PRN PRN #20 tab 07/30/20 [Rx Last Taken Unknown] Allergy/AdvReac Type Severity Reaction Status Date / Time No Known Allergies Allergy Verified 07/30/20 06:46 Surgical History (Updated 07/30/20 @ 07:[address] Getachew Mclaughlin DO) History of esophagogastroduodenoscopy (EGD) Social History (Updated 07/30/20 @ 07:[address] Getachew Mclaughlin DO) Smoking Status: Light Smoker (<10/day) substance use type: marijuana ROS ROS ED Constitutional Constitutional ED: Denies chills or weight loss Eyes Eyes: Denies change in vision or diplopia ENT ENT ED: Denies ear pain, rhinorrhea or sore throat Cardiovascular Cardiovascular: Denies chest pain, orthopnea, palpitations or racing heartbeat Respiratory/Chest Respiratory/Chest: Denies cough, dyspnea or orthopnea Gastrointestinal Gastrointestinal: Reports nausea and vomiting; Denies abdominal pain or diarrhea Genitourinary Genitourinary ED: Denies dysuria, hematuria or urinary frequency Musculoskeletal Musculoskeletal: Denies arthralgias or myalgias Integumentary Denies abscess or rash Neurologic Neurologic: Denies headache(s) or weakness Psychiatric Psychiatric: Denies anxiety, depression, suicidal ideation or suicidal thoughts Endocrine Endocrinology: Denies polydipsia, polyphagia or polyuria Allergic/Immunologic Allergic/Immunologic ED: Denies mouth swelling, tongue swelling or urticaria EXAM Physical Exam Const Vital Signs: 07/30/20 06:42 07/30/20 06:44 Temperature 98.4 F 98.4 F Temperature Source Temporal Temporal Pulse Rate 67 67 Respiratory Rate 18 18 Blood Pressure 129/90 H 129/90 H Blood Pressure Mean 103 103 Pulse Ox 97 97 Positive well nourished and well developed General Appearance ED: well developed HEENT Reports normocephalic, head/scalp atraumatic and moist mucous membranes Eyes PERRL and EOMs intact bilaterally Neck no lymphadenopathy, supple and no JVD Resp normal respiratory effort and clear to auscultation bilaterally Cardio regular rate, regular rhythm and no murmurs GI normal to inspection, nondistended, normoactive bowel sounds and non-tender Palpation: soft Back/Spine no CVA tenderness and normal ROM Extremity normal to inspection General Extremety ED: Negative for edema General Extremity: Negative for edema Neuro oriented x3 and CN's II-XII intact bilaterally Sensorium / Orientation: alert Motor Exam: strength 5/5 throughout Psych mental status grossly normal Mood & Affect: Negative for depressed or tearful Skin no rashes or lesions noted and no wounds MDM MDM MDM Narrative Medical decision making narrative: Patient received IV fluids and Zofran. Repeat examination states that he is feeling better. He does not wish to do a p.o. challenge. I will write for him to have Zofran at home. Return if worsening or concerns Discharge Plan Triage Chief Complaint: Nausea/Vomiting ED Provider: Getachew Mclaughlin Dx/Rx/DC Orders Clinical Impression: Vomiting Instructions: ED Cyclic Vomiting Syndrome Prescriptions: New ondansetron [ondansetron] 4 MG tablet 4 mg PO Q6H PRN PRN (Reason: Nausea) Qty: 20 RF: 0 Primary Care Provider: Daniel Marie Referrals: Daniel Marie MD [Primary Care Provider] - As Needed Disposition Disposition: Home, Self Care
[2020-07-30 08:04] VITALS: BP 124/69; PULSE 72; RESP 15; TEMP 36.6; O2SAT 98
== END 2020-07-30 08:05 | disposition home or self-care (01) ==
PROVIDERS: Emergency Provider Emergency Medicine; PCP Family Medicine
DX: R11.2 Nausea with vomiting, unspecified (principal); F17.200 Nicotine dependence, unspecified, uncomplicated
CPT/HCPCS: 96374; 99284; J7030; A4216; J2405

== ENCOUNTER 2020-08-25 06:44 | Emergency (ER) | payer MEDICAID, SELFPAY ==
[2020-08-25 06:45] VITALS: BP 153/107; PULSE 84; RESP 18; TEMP 36.3; O2SAT 98; BMI 31.1
--- NOTE | 2020-08-25 07:04 | EDS_ITS ---
HPI History of Present Illness Chief Complaint: Nausea/Vomiting Narrative Narrative: 39-year-old male presenting with nausea/vomiting. Patient states he vomits every morning. Patient had vomited today on the worksite and his boss sent him in for evaluation. He states there was some blood tingeing in his vomit. He states this is a daily occurrence without change. He does not have any abdominal pain. He has been told in the past he has cannabinoid hyperemesis syndrome however he states he quit marijuana for a year and a half and still has vomiting every morning. He states that he does have at times severe heartburn that wakes him up from sleep and makes him vomit. He is not on any PPI currently. He is on Zofran which he takes at night and he started this recently. Patient's last upper endoscopy was 3 years ago at [facility] which was normal. [facility] Medical History Chronic vomiting History of rotator cuff tear Home Medications ondansetron 4 mg PO Q6H PRN PRN #20 tab 07/30/20 [Rx Last Taken Unknown] omeprazole magnesium [Prilosec OTC] 20 mg PO DAILY #30 tab 08/25/20 [Rx Last Taken Unknown] Allergy/AdvReac Type Severity Reaction Status Date / Time No Known Allergies Allergy Verified 07/30/20 06:46 Surgical History History of esophagogastroduodenoscopy (EGD) Social History Smoking Status: Light Smoker (<10/day) substance use type: marijuana ROS ROS ED Constitutional Constitutional ED: Denies chills or fever(s) Eyes Eyes: Denies blurry vision or diplopia ENT ENT ED: Denies rhinorrhea or sore throat Cardiovascular Cardiovascular: Denies chest pain, palpitations or racing heartbeat Respiratory/Chest Respiratory/Chest: Denies cough, dyspnea or sputum Gastrointestinal Gastrointestinal: Reports nausea and vomiting; Denies abdominal pain or diarrhea Genitourinary Genitourinary ED: Denies dysuria or hematuria Musculoskeletal Musculoskeletal: Denies arthralgias or myalgias Integumentary Denies abscess or rash Neurologic Neurologic: Denies headache(s) or paresthesias Psychiatric Psychiatric: Denies anxiety or depression EXAM Physical Exam Const Vital Signs: 08/25/20 06:45 Temperature 97.3 F L Temperature Source Temporal Pulse Rate 84 Respiratory Rate 18 Blood Pressure 153/107 H Blood Pressure Mean 122 Pulse Ox 98 Oxygen Delivery Method Room Air Positive well nourished General Appearance ED: NAD HEENT Reports moist mucous membranes Negative for trauma Eyes PERRL and EOMs intact bilaterally General Eye ED: Negative for scleral icterus Resp normal respiratory effort and clear to auscultation bilaterally Cardio regular rate and regular rhythm GI normal to inspection, nondistended, normoactive bowel sounds Neuro oriented x3 and CN's II-XII intact bilaterally Sensorium / Orientation: alert Psych mental status grossly normal Skin no rashes or lesions noted and no wounds MDM MDM MDM Narrative Medical decision making narrative: Patient presenting for evaluation of nausea and vomiting. He states this is a daily occurrence. He also states that he does have blood tingeing in his vomit almost daily. His last upper endoscopy was 3 years ago. Patient recently started on Zofran by his primary care physician. Patient states that he only came because his boss saw a little bit of blood in his vomit and wanted him to get checked out. Currently he states he is not nauseous. He does not complain of any abdominal pain. His vital signs are stable and he is afebrile. This does not seem to be a change from his daily occurrence and he does not appear to be any acute distress. I do not believe he needs lab work or imaging. Patient's history is consistent with acid reflux more than cannabinoid hyperemesis syndrome. He will be started on a PPI. He has Zofran at home currently. Patient counseled on foods to avoid, and counseled that he should not eat within 4 hours of bedtime. Small amount of blood tingeing in the vomit consistent with Meghana-Jrodan tear. Patient counseled he should have his primary care physician refer him to a GI doctor. Patient stable for discharge. Impression: 1. Nausea/vomiting 2. GERD 3. Meghana-Jordan tear Discharge Plan Triage Chief Complaint: Nausea/Vomiting ED Provider: Mahesh Baldwin Dx/Rx/DC Orders Instructions: Meghana-Jordan Tear, ED Cyclic Vomiting Syndrome, ED GERD (Adult) Prescriptions: New omeprazole magnesium [Prilosec OTC] 20 mg tablet,delayed release (DR/EC) 20 mg PO DAILY Qty: 30 RF: 0 No Action ondansetron [ondansetron] 4 MG tablet 4 mg PO Q6H PRN PRN (Reason: Nausea) Qty: 20 RF: 0 Primary Care Provider: Noe Hickman Referrals: Noe Hickman MD [Primary Care Provider] - Disposition Disposition: Home, Self Care
[2020-08-25 07:13] VITALS: PULSE 88; RESP 17; O2SAT 98
== END 2020-08-25 07:14 | disposition home or self-care (01) ==
LOC: ED 07:08
PROVIDERS: Emergency Provider Student in an Organized Health Care Education/Training Program; PCP Internal Medicine
DX: K22.6 Gastro-esophageal laceration-hemorrhage syndrome (principal); K21.9 Gastro-esophageal reflux disease without esophagitis; R11.2 Nausea with vomiting, unspecified; F17.200 Nicotine dependence, unspecified, uncomplicated
CPT/HCPCS: 99282

== ENCOUNTER 2021-04-19 08:46 | Emergency (ER) | payer MEDICAID, SELFPAY ==
[2021-04-19 08:47] VITALS: BP 151/80; PULSE 78; RESP 16; TEMP 36.4; O2SAT 100; BMI 32.5
--- NOTE | 2021-04-19 09:13 | ED.VIS.DENTA ---
HPI History of Present Illness Chief Complaint: Dental Informant: patient Onset/Context/Timing Onset: Days (3) Context: Gradual Onset Timing: Continuous Quality: Aching Location: Left upper molars Worsened by: Chewing, eating Relieved by: NSAIDs and - (Tylenol) Associated Symptoms Assocated Symptom - Dental: cold sensitivity; Negative for fever, jaw swelling, face swelling or hot sensitivity Narrative Narrative: that has been getting progressively worse over the past 3 days. Patient states it is gradually getting worse. left upper dental painPatient presents with Patient states it is constant. Patient describes it as aching. Patient states it is over the left upper molar area. Patient states it is worse with chewing and eating. Patient states he took 500 mg of Tylenol and 800 mg of ibuprofen which helped. Patient admits to some cold sensitivity. Patient denies any fevers or chills. Patient denies any facial or jaw swelling. Patient denies any difficulty swallowing or difficulty breathing. [facility] Medical History Chronic vomiting History of rotator cuff tear Home Medications ondansetron 4 mg PO Q6H PRN PRN #20 tab 07/30/20 [Rx Last Taken Unknown] omeprazole magnesium [Prilosec OTC] 20 mg PO DAILY #30 tab 08/25/20 [Rx Last Taken Unknown] penicillin V potassium 500 mg PO 4X/DAY #40 tab 04/19/21 [Rx Last Taken Unknown] Allergy/AdvReac Type Severity Reaction Status Date / Time No Known Allergies Allergy Verified 04/19/21 08:49 Surgical History History of esophagogastroduodenoscopy (EGD) Social History Smoking Status: Light Smoker (<10/day) substance use type: marijuana ROS ROS ED Constitutional Constitutional ED: Denies chills or fever(s) Eyes Eyes: Denies blurry vision or change in vision ENT ENT ED: Denies rhinorrhea or sore throat Cardiovascular Cardiovascular: Denies chest pain or palpitations Respiratory/Chest Respiratory/Chest: Denies cough or dyspnea Gastrointestinal Gastrointestinal: Reports nausea and vomiting Genitourinary Genitourinary ED: Denies dysuria or hematuria Musculoskeletal Musculoskeletal: Denies back pain or neck pain Integumentary Denies abscess or rash Neurologic Neurologic: Reports headache(s); Denies weakness Allergic/Immunologic Allergic/Immunologic ED: Denies mouth swelling or urticaria EXAM Physical Exam Const Vital Signs: 04/19/21 08:47 Temperature 97.6 F L Temperature Source Temporal Pulse Rate 78 Respiratory Rate 16 Blood Pressure 151/80 H Blood Pressure Mean 103 Pulse Ox 100 Oxygen Delivery Method Room Air Positive well nourished and well developed General Appearance ED: well developed and NAD HEENT HEENT Narrative: There are multiple dental caries noted over the upper incisors, left upper canine, left upper premolars, and left upper molars. There is no gingival edema. There is no evidence of any abscess. There is no discharge or drainage. There is no sublingual edema or erythema. Oropharynx is clear. Airway is patent. Mouth ED: Yes tongue normal Mouth: tongue normal Teeth and Gingiva: caries Throat: posterior oropharynx normal Neck supple and no JVD General: Negative for anterior neck swelling or submandibular swelling Neuro oriented x3, CN's II-XII intact bilaterally, moves all extremities, no focal motor deficits and no sensory deficits noted Sensorium / Orientation: alert Psych mental status grossly normal MDM MDM MDM Narrative Medical decision making narrative: Patient was given a dose of Pen-Vee K here. Patient was given a prescription for Pen-Vee K. Patient was instructed to continue Tylenol and ibuprofen as needed for pain. Patient was instructed to follow-up with a dentist in 5 to 7 days. Patient was given a referral for a dentist. Patient understood and was agreeable with the plan. All questions were answered. Discharge Plan Triage Chief Complaint: Dental ED Provider: José Miguel Anderson Dx/Rx/DC Orders Clinical Impression: Infected dental caries Instructions: ED Dental Pain, ED Dental Cavity Prescriptions: New penicillin V potassium 500 MG tablet 500 mg PO 4X/DAY Qty: 40 RF: 0 No Action ondansetron [ondansetron] 4 MG tablet 4 mg PO Q6H PRN PRN (Reason: Nausea) Qty: 20 RF: 0 omeprazole magnesium [Prilosec OTC] 20 mg tablet,delayed release (DR/EC) 20 mg PO DAILY Qty: 30 RF: 0 Primary Care Provider: Noe Hickman Referrals: Mikaela Hercules [NON-STAFF] - 5-7 Days Noe Hickman MD [Primary Care Provider] - 5-7 Days Disposition Disposition: Home, Self Care
[2021-04-19] MEDS: Naproxen 250 MG Tablet 500 MG PO (10:12)
[2021-04-19] MEDS: Penicillin Vk 250 MG Tablet 500 MG PO (10:12)
== END 2021-04-19 10:14 | disposition home or self-care (01) ==
PROVIDERS: Emergency Provider Emergency Medicine; PCP Internal Medicine; Visit Provider Emergency Medicine
DX: K02.9 Dental caries, unspecified (principal); F17.200 Nicotine dependence, unspecified, uncomplicated
CPT/HCPCS: 99283

== ENCOUNTER 2022-01-10 17:00 | Emergency (ER) | payer MEDICAID, SELFPAY ==
[2022-01-10 17:01] VITALS: BP 134/87; PULSE 101; RESP 15; TEMP 36.4; O2SAT 96; BMI 30.5
== END 2022-01-10 17:37 | disposition left against medical advice (07) ==
LOC: ED 17:41
PROVIDERS: PCP Internal Medicine
DX: Z53.29 Procedure and treatment not carried out because of patient's decision for other reasons (principal)

== ENCOUNTER 2023-01-16 13:14 | Emergency (ER) | payer MEDICAID, SELFPAY ==
[2023-01-16 13:16] VITALS: BP 151/103; PULSE 118; RESP 16; TEMP 36.1; O2SAT 99; BMI 31.6
[2023-01-16 14:12] LABS: Absolute Lymphocyte Count 1.19 X10^3/uL (0.83-4.51); Absolute Neutrophil Count 22.2 X10^3/uL (2.0-7.7); Basophil# 0.11 X10^3/uL; Basophil% 0.4 % (0-1); Eosinophil# 0.09 X10^3/uL; Eosinophils% 0.4 % (0-5); Lymphocyte # 1.19 X10^3/ul (0.83-4.51); Lymphocyte % 4.7 % (19-41); Mean Corp Hgb Conc 34.3 g/dL (32-36); Mean Corpuscular Hgb 30.5 pg (27.0-32.0); Mean Corpuscular Volume 88.8 fL (80-94); Mean Platelet Vol. 10.2 fl (6.2-12.0); Monocyte# 1.49 X10^3/uL; Monocyte% 5.9 % (0-10); NRBC Flagged by Analyzer 0 % (0-5); Neutrophil # 22.18 X10^3/uL (2.7-7.7); POSITIVE DIFFERENTIAL YES; Platelet Count 346 K/mm3 (150-450); RBC Distribution Width CV 13.2 % (11.6-14.6); RBC Distribution Width SD 42.8 fl (35.1-43.9); Red Blood Count 6.36 M/mm3 (4.6-6.2); White Blood Count 25.2 K/mm3 (4.4-11.0)
[2023-01-16 14:13] LABS: Hematocrit 56.5 % (40-54)
[2023-01-16 14:15] LABS: Differential Indicated SCAN CRITERIA MET; Hemoglobin 19.4 g/dL (13.0-16.5)
[2023-01-16 14:27] LABS: AST(SGOT) 19 U/L (15-37); Alanine Aminotransfer ALT/SGPT 39 U/L (16-61); Albumin, Serum 4.5 g/dL (3.2-5.0); Alkaline Phosphatase 88 U/L (45-117); Anion Gap 1 (5-15); BUN 15 mg/dL (7-18); BUN/Creat Ratio 9.6 RATIO (10-20); Chloride 110 mmol/L (98-107); Creatinine, Serum 1.56 mg/dL (0.70-1.30); EST Glomerular Filtration Rate 53 mL/min (>60); Est Glom Filt Rate - Afr Amer 64 mL/min (>60); Globulin 4.3 g/dL (2.2-4.2); Glucose 142 mg/dL (74-106); Potassium 4.2 mmol/L (3.5-5.1); Protein, Total 8.8 g/dL (6.4-8.2); Sodium Level 139 mmol/L (136-145)
[2023-01-16 14:34] LABS: Differential Comment SCANNED
--- NOTE | 2023-01-16 14:42 | CT_ITS ---
STUDY: CT ABDOMEN AND PELVIS WITH CONTRAST REASON FOR EXAM: Male, 42 years old. Vomiting diarhea, mild RLQ pain -- leukocytosis RADIATION DOSAGE (If Supplied By Facility): CTDIvol = ( 16.90 ) mGy, DLP = ( 1187.20 ) mGycm TECHNIQUE: Transaxial images were obtained from the dome of the diaphragm to the symphysis pubis without oral contrast. IV 100mL Isovue-300 was administered. Sagittal and coronal images were reconstructed. Individualized dose optimization techniques were used for this CT. COMPARISON: None. FINDINGS: The visualized lung bases are unremarkable. The visualized portions of the heart are within normal limits. Normal liver. Normal gallbladder and extrahepatic biliary system. Normal spleen. Normal pancreas. Normal bilateral adrenal glands. Normal right kidney. Normal left kidney. Normal visualized stomach. Circumferential wall thickening of the terminal ileum. Abdomen this appearance of the descending colon. Inflammatory bowel disease should be ruled out. The appendix is visualized and appears normal. Normal abdominal aorta. Normal inferior vena cava. Normal retroperitoneum. Normal urinary bladder. Normal abdominal wall. Normal osseous structures. CT/Abdomen/Pelvis W IV Cont ONLY IMPRESSION: Circumferential wall thickening of the terminal ileum. Inflammatory changes of the descending colon. Inflammatory bowel disease should be ruled out. Electronically Signed: Dre Diehl MD at 15:35 EST ,
--- NOTE | 2023-01-16 14:43 | EDS_ITS ---
HPI History of Present Illness Chief Complaint: Nausea/Vomiting/Diarrhea Informant: patient and spouse/S.O. Narrative Narrative: Partners vomiting diarrhea mild abdominal discomfort since 7 AM this morning. They ate as a family yesterday evening nobody else sick. Vomited total 9-10 times last time out in the waiting room. No hematemesis. Total 3 diarrhea episodes. Denies recent antibiotics. Denies fevers reports chills. Denies urinary symptoms. Denies cough. Denies any abdominal surgeries in the past. Denies any allergies. Addition after reviewing records notes he has marijuana use in his history. Discussed further with him states he does every day. Discussed this with his PCP and states potentially induced from this however he states he stopped for 3 months however still had vomiting therefore he restarted he states he has nausea and vomiting almost every day in the mornings when he moves around a lot however this feels different.. [facility] Medical History Chronic vomiting History of rotator cuff tear Home Medications ondansetron 4 mg disintegrating tablet 4 mg PO Q6H PRN PRN Nausea #20 tabs 07/30/20 [Rx Last Taken Unknown] omeprazole magnesium 20 mg tablet,delayed release (Prilosec OTC) 20 mg PO DAILY #30 tabs 08/25/20 [Rx Last Taken Unknown] penicillin V potassium 500 mg tablet 500 mg PO 4X/DAY #40 tabs 04/19/21 [Rx Last Taken Unknown] cefdinir 300 mg capsule 300 mg PO Q12H #14 caps 01/16/23 [Rx Last Taken Unknown] metronidazole 500 mg tablet 500 mg PO Q8H #21 tabs 01/16/23 [Rx Last Taken Unknown] ondansetron 4 mg disintegrating tablet 4 mg PO Q8H PRN PRN Nausea #10 tabs 01/16/23 [Rx Last Taken Unknown] Allergy/AdvReac Type Severity Reaction Status Date / Time No Known Allergies Allergy Verified 01/16/23 13:15 Surgical History History of esophagogastroduodenoscopy (EGD) Social History Smoking Status: Current every day smoker tobacco type: cigarettes substance use type: marijuana ROS ROS ED Constitutional Constitutional ED: Denies chills, fever(s) or sweats Eyes Eyes: Denies change in vision ENT ENT ED: Denies dysphagia or sore throat Cardiovascular Cardiovascular: Denies chest pain, leg edema, palpitations or racing heartbeat Respiratory/Chest Respiratory/Chest: Denies cough, dyspnea or dyspnea on exertion Gastrointestinal Gastrointestinal: Reports abdominal pain, diarrhea, nausea and vomiting Genitourinary Genitourinary ED: Denies dysuria, hematuria or urinary frequency Musculoskeletal Musculoskeletal: Denies back pain, extremity pain or neck pain Integumentary Denies rash or wounds Neurologic Neurologic: Denies headache(s), paresthesias or weakness EXAM Physical Exam Const Vital Signs: 01/16/23 13:16 01/16/23 17:12 Temperature 97 F L Temperature Source Temporal Pulse Rate 118 H 89 Respiratory Rate 16 14 Blood Pressure 151/103 H 106/79 Blood Pressure Mean 119 88 Pulse Ox 99 98 Oxygen Delivery Method Room Air Room Air Positive well nourished and well developed General Appearance ED: well developed and NAD HEENT Reports dry mucous membranes normocephalic and atraumatic Mouth ED: Yes dry mucous membranes Mouth: dry mucous membranes Eyes PERRL, EOMs intact bilaterally and conjunctivae normal General Eye ED: Yes normal appearance of both eyes Neck no lymphadenopathy and supple General: Negative for tenderness Chest Wall Chest: Negative for tenderness Resp normal respiratory effort and normal air movement Effort and Inspection: symmetric chest movement; Negative for respiratory distress Cardio regular rhythm and no murmurs Rate: tachycardic Peripheral Pulses: pulses 2+ throughout GI normal to inspection, nondistended, normoactive bowel sounds GI Narrative: Mild tenderness right lower quadrant there is no guarding or rebound. Negative East's. No pain in the left lower quadrant. Palpation: Negative for guarding or rebound tenderness present Back/Spine no CVA tenderness and no thoracic nor lumbar tenderness Extremity normal to inspection General Extremety ED: Negative for edema or tenderness General Extremity: Negative for edema Neuro oriented x3 and no sensory deficits noted Sensorium / Orientation: awake and alert Skin no rashes or lesions noted and no wounds MDM MDM MDM Narrative Medical decision making narrative: Interventions / MDM: Differential diagnosis: Colitis, vomiting and diarrhea, electrolyte abnormalities Diagnosis considered but do not suspect: Appendicitis however CT negative. My EKG interpretation: N/A Imaging independently reviewed and interpreted by myself: CT scan abdomen pelvis IV contrast: Circumferential thickening of the terminal ileum, normal appendix, descending colon Colitis. External documents reviewed: N/A Test considered but not ordered:N/A ED course: Patient workup started in triage, labs white count of 25. he had slight right lower quadrant tenderness With vomiting diarrhea. IV established for fluids for clinical dehydration. Slight renal insufficiency creatinine 1.56. Is given Zofran Pepcid. Did not require any pain medicines. Results CT terminal ileum thickening and descending colitis. He is tolerating oral fluids. He started on cefdinir and Flagyl which she tolerated well in the ED. Prescription Zofran antibiotics sent to his pharmacy. He is given follow- up with GI as an outpatient. Return precautions. Re-evaluation: stable Disposition discussed with patient/family/significant other: Patient and family Case discussed with consulting clinician: N/A This note was generated with [employer] dictation software. It may contain incorrect words, spelling, and punctuation that were not noted in checking the note before signing. Lab Data Attestation: I reviewed the patient's lab results. Labs: Laboratory Results - last 24 hr 01/16/23 01/16/23 14:00 15:50 WBC 25.2 H RBC 6.36 H Hgb 19.4 H* Hct 56.5 H MCV 88.8 MCH 30.5 MCHC 34.3 RDW Std Deviation 42.8 RDW Coeff of Alisson 13.2 Plt Count 346 MPV 10.2 Immature Gran % (Auto) 0.600 Neut % (Auto) 88.0 H Lymph % (Auto) 4.7 L [place] % (Auto) 5.9 Eos % (Auto) 0.4 Baso % (Auto) 0.4 Absolute Neuts (auto) 22.2 H Absolute Lymphs (auto) 1.19 Nucleated RBC % 0 Differential Comment SCANNED Diff Path Review May foll Sodium 139 Potassium 4.2 Chloride 110 H Carbon Dioxide 28.0 Anion Gap 1 L BUN 15 Creatinine 1.56 H Estim Creat Clear Calc 60.90 Est GFR (MDRD) Af Amer 64 Est GFR (MDRD) Non-Af 53 L BUN/Creatinine Ratio 9.6 L Glucose 142 H Calcium 10.0 Total Bilirubin 0.50 AST 19 ALT 39 Alkaline Phosphatase 88 Total Protein 8.8 H Albumin 4.5 Globulin 4.3 H Albumin/Globulin Ratio 1.0 Urine Color Yellow Urine Clarity Clear Urine pH 5.0 Ur Specific [place] 1.015 Urine Protein 30 H Urine Glucose (UA) Normal Urine Ketones Negative Urine Occult Blood Negative Urine Nitrite Negative Urine Bilirubin Negative Urine Urobilinogen Normal Ur Leukocyte Esterase 25 H Urine RBC 0 SEEN Urine WBC 0 SEEN Ur Squamous Epith Cells 0 SEEN Urine Bacteria 0 SEEN Urine Mucus 0 SEEN Radiography Diagnostic Testing: Clinical Impression(s) from Imaging Studies Abdomen/Pelvis CT 01/16/23 14:42 IMPRESSION: Circumferential wall thickening of the terminal ileum. Inflammatory changes of the descending colon. Inflammatory bowel disease should be ruled out. Electronically Signed: Dre Diehl MD at 15:35 EST , Discharge Plan Triage Chief Complaint: Nausea/Vomiting/Diarrhea ED Provider: Charanjit Wallis Dx/Rx/DC Orders Clinical Impression: Diarrhea, Diverticulitis, Renal insufficiency, Abdominal pain, Vomiting, Dehydration Instructions: Abdominal Pain, Diverticulitis Dc, ED Diet Vomiting Diarrhea Prescriptions: New metronidazole [metronidazole] 500 mg tablet 500 mg PO Q8H Qty: 21 0RF cefdinir 300 mg capsule 300 mg PO Q12H Qty: 14 0RF ondansetron [ondansetron] 4 mg tablet,disintegrating 4 mg PO Q8H PRN PRN (Reason: Nausea) Qty: 10 0RF No Action ondansetron [ondansetron] 4 MG tablet 4 mg PO Q6H PRN PRN (Reason: Nausea) Qty: 20 0RF omeprazole magnesium [Prilosec OTC] 20 mg tablet,delayed release (DR/EC) 20 mg PO DAILY Qty: 30 0RF penicillin V potassium 500 MG tablet 500 mg PO 4X/DAY Qty: 40 0RF Primary Care Provider: Noe Hickman Referrals: Devan Smith DO [Med Staff - Active Staff] - 1-2 Weeks Noe Hickman MD [Primary Care Provider] - 3-5 Days Activity Restrictions/Additional Instructions: Take and finish antibiotics as prescribed. CT scan notes circumferential thickening of the cecum normal appendix there is also descending colon inflammation consistent with diverticulitis. You will need to follow-up with GI, Dr. Friend for further outpatient evaluation and testing. Use Zofran as needed. Your creatinine 1.5 today up from 1.1. Continue oral fluids for hydration at home. Follow-up with your PCP for recheck labs. If your symptoms worsens, return to the ED for reevaluation. Disposition Disposition: Home, Self Care Discharge Date/Time: 01/16/23 17:18
[2023-01-16] MEDS: Ondansetron 4 MG/2 ML Vial IV (14:59)
[2023-01-16] MEDS: 0.9% Normal Saline (1000mL) 1,000 ML 1000 ML IV (14:59)
[2023-01-16] MEDS: Famotidine 200 MG/20 ML MDV 20 MG in 0.9% Normal Saline (Pres. free 8 ML 300 MG IV (15:08)
[2023-01-16 15:56] LABS: Bacteria 0 SEEN /hpf (None Seen); Mucous, Urine 0 SEEN /hpf (<or=2+); Red Blood Cells-Urine 0 SEEN /hpf (0-5); Squamous Epithelial Cells - UA 0 SEEN /hpf (0-5); White Blood Cells 0 SEEN /hpf (0-5)
[2023-01-16 16:15] LABS: Color, Urine Yellow (Yellow); Glucose, Dipstick Normal (Normal); Ketone-Dipstick Negative (Negative); Leukocyte Esterase-Dipstick 25 /ul (Negative); Nitrite-Dipstick Negative (Negative); Occult Blood-Urine Negative /ul (Negative); Protein-Dipstick 30 mg/dl (Negative); Specific Gravity, Urine 1.015 (1.002-1.030); Urine Bilirubin Dipstick Negative (Negative); Urine Clarity Clear (Clear); Urine Urobilinogen Normal (Normal)
[2023-01-16] MEDS: Cefdinir 300 MG Capsule PO (16:21)
[2023-01-16] MEDS: metroNIDAZOLE 500 MG Tablet PO (16:21)
[2023-01-16 17:12] VITALS: BP 106/79; PULSE 89; RESP 14; O2SAT 98
[2023-01-18 08:43] LABS: Pathologist Review Reviewed
== END 2023-01-16 17:18 | disposition home or self-care (01) ==
PROVIDERS: Emergency Provider Emergency Medicine; PCP Internal Medicine; Visit Provider Emergency Medicine
DX: K57.32 Diverticulitis of large intestine without perforation or abscess without bleeding (principal); N28.9 Disorder of kidney and ureter, unspecified; E86.0 Dehydration; F17.210 Nicotine dependence, cigarettes, uncomplicated
CPT/HCPCS: 74177; 80053; 81001; 85025; 96361; 96374; 96375; 99284; J7030; Q9967; A4216; J2405; J3490